=== PATIENT | female | born 1985 | race Caucasian/White ===

== ENCOUNTER 2017-02-11 23:20 | Emergency (ER) | payer OTHER ==
[2017-02-12 00:32] VITALS: BP 141/88
[2017-02-12] MEDS ORDERED: HYDROcodone/ACETAMIN 5-325 MG* 1 TAB PO ONE (00:44)
[2017-02-12] MEDS ORDERED: Cyclobenzaprine TAB* 10 MG PO ONE (00:45)
--- NOTE | 2017-02-13 16:27 | ED ---
Back Pain - HPI Summary HPI Summary: Patient presents with back pain. Hx of ruptured L5 disc 08/2016. Treated with PT only at the time with moderate improvement. Increased pain after gardening 2 weeks ago. Today, she notes to 9/10 pain in the lower back where previous injury occurred. She notes to back spasms. Ibuprofen without improvement of symptoms. Denies numbness, tingling, temperature or color changes to the area. Taken muscle relaxers and pain medication with improvement. Denies trauma to the area. Denies bladder or bowel dysfunction. - History of Current Complaint Chief Complaint: EDBackInjuryPain Stated Complaint: BACK PAIN Time Seen by Provider: 02/12/17 00:21 Hx Obtained From: Patient Hx Last Menstrual Period: 3 WEEKS AGO (HAVING BREAKTHROUGH BLEEDING NOW) Onset/Duration: Gradual Onset Onset/Duration: Started Weeks Ago, Atraumatic Timing: Constant Back Pain Location: Is Discrete @ - low back Severity Initially: Moderate Severity Currently: Moderate Pain Intensity: 8 Pain Scale Used: 0-10 Numeric Character: Aching, Spasmodic Aggravating Symptom(s): Movement, Lifting, Bending Alleviating Symptom(s): Rest, Position Associated Signs And Symptoms: Positive: Negative - Risk Factors AAA Risk Factors: Negative TAD Risk Factors: Negative Cauda Equina Risk Factors: Negative Epidural Abscess Risk Factors: Negative - Allergies/Home Medications Allergies/Adverse Reactions: Allergies Allergy/AdvReac Type Severity Reaction Status Date / Time No Known Allergies Allergy Verified 02/12/17 00:26 PMH/Surg Hx/FS Hx/Imm Hx Previously Healthy: Yes Endocrine/Hematology History: Denies: Hx Diabetes, Hx Thyroid Disease Cardiovascular History: Denies: Hx Hypertension, Hx Pacemaker/ICD Respiratory History: Denies: Hx Asthma, Hx Chronic Obstructive Pulmonary Disease (COPD) GI History: Denies: Hx Ulcer Sensory History: Denies: Hx Hearing Aid Psychiatric History: Denies: Hx Panic Disorder - Immunization History Hx Pertussis Vaccination: No Immunizations Up to Date: Unable to Obtain/Confirm Infectious Disease History: No Infectious Disease History: Denies: Hx Hepatitis, Hx Human Immunodeficiency Virus (HIV), Traveled Outside the [place] in Last 30 Days - Family History Known Family History: Positive: None - Social History Occupation: Employed Full-time Lives: With Family Alcohol Use: Rare Hx Substance Use: No Substance Use Type: Reports: None Hx Tobacco Use: No Smoking Status (MU): Never Smoked Tobacco Review of Systems Constitutional: Negative Eyes: Negative Cardiovascular: Negative Respiratory: Negative Genitourinary: Negative Positive: no symptoms reported, see HPI Positive: Arthralgia, Myalgia Skin: Negative Neurological: Negative Psychological: Normal All Other Systems Reviewed And Are Negative: Yes Physical Exam Triage Information Reviewed: Yes Vital Signs On Initial Exam: Initial Vitals Temp Pulse Resp BP Pulse Ox 98.1 F 95 20 141/88 100 02/11/17 23:25 02/11/17 23:25 02/11/17 23:25 02/11/17 23:25 02/11/17 23:25 Vital Signs Reviewed: Yes Appearance: Positive: Well-Appearing, Well-Nourished Skin: Positive: Warm, Skin Color Reflects Adequate Perfusion Head/Face: Positive: Normal Head/Face Inspection Eyes: Positive: Normal, EOMI, VLADIMIR, Conjunctiva Clear Neck: Positive: Supple, Nontender, No Lymphadenopathy Respiratory/Lung Sounds: Positive: Clear to Auscultation, Breath Sounds Present Cardiovascular: Positive: Normal, RRR, Pulses are Symmetrical in both Upper and Lower Extremities Musculoskeletal: Positive: Pain @, Other - Thorough physical exam was performed , focusing on thoracic and lumbar special tests and ROM. Due to patient pain around injury, physical exam was limited. Limited ROM. Flip Test negative. Straight leg raise positive. Kernig test positive. Negative Babinksi. Hip flexion and extension, knee extension, dorsiflexion, great toe extension and plantar flexion intact. Rotating at hips limited d/t pain. Nerve roots L4-S2 reflexes intact. L1-S2 nerve root sensory intact. No saddle anesthesia. Gait normal. Neurological: Positive: Normal, Sensory/Motor Intact, Alert, Oriented to Person Place, Time - [place] Coma Scale Best Eye Response: 4 - Spontaneous Best Motor Response: 6 - Obeys Commands Best Verbal Response: 5 - Oriented Diagnostics - Vital Signs Vital Signs Temp Pulse Resp BP Pulse Ox 02/12/17 00:20 98.1 F 95 20 141/88 100 02/11/17 23:25 98.1 F 95 20 141/88 100 - Laboratory Lab Statement: Any lab studies that have been ordered have been reviewed, and results considered in the medical decision making process. Back Pain Course/Dx - Course Course Of Treatment: Patient with chronic back pain with re-injury and pain not well controlled on OTC. Patient given orthopedic follow up in 5-7 days. Encouraged Ibuprofen 600mg three times daily with meals for pain. Return precautions given. Educated patient regarding back injuries and healing time and the need for further imaging if discomfort is present for > 6 weeks. Given pain management and muscle relaxers for relief of pain. - Diagnoses Differential Diagnosis/HQI/PQRI: Positive: Herniated Disc, Strain, Sprain Provider Diagnoses: Lumbar back pain Images - Images Full Body (No Head): 1 - pain on palpation Discharge - Discharge Plan Condition: Stable Disposition: HOME Prescriptions: Cyclobenzaprine TAB* [Flexeril TAB*] 10 mg PO BID PRN #20 tab MDD 2 PRN Reason: Pain Lidocaine PATCH 5%* [Lidoderm 5% Patch*] 1 patch TRANSDERM DAILY #5 patch oxyCODONE/Acetamin 10/325(NF) [Percocet 10/325 (NF)] 1 tab PO Q6H #28 tab MDD 4 Patient Education Materials: Lumbar Disc Herniation (ED) Referrals: Jenni Posadas MD [Primary Care Provider] - Additional Instructions: Take Percoset as needed for pain Do not drive with this medication. Lidocaine patch as needed. Flexeril: This medication is a muscle relaxant and can help relieve muscle spasms, muscle strain, or pain sensations. Flexeril can cause side effects that may impair your thinking or reactions. Be careful if you drive or do anything that requires you to be awake and alert. Avoid drinking alcohol, which can increase some of the side effects of Flexeril. Ibuprofen 600mg three times daily with meals for discomfort. Return to ED if symptoms worsen or fail to improve, notice worsening swelling, warmth or redness around the joint, develop fever, or pain is uncontrolled with OTC medications. Moist heat to the area for comfort. Warm showers or baths may improve symptoms. It is important to remain mobile as tolerated to prevent stiffening of the joints and delay healing. Follow up with your PCP. If symptoms remain for > 6 weeks, please seek special medical attention from an orthopedic physician.
== END 2017-02-12 01:01 | disposition home or self-care (01) ==
LOC: ED 23:20
DX: M54.5 Low back pain (principal)
CPT/HCPCS: 99282; A9270-GY

== ENCOUNTER 2017-02-24 06:27 | Observation (INO) | payer OTHER ==
[~2017-02-24 06:27] MED LIST: Buffered Lidocaine 0.9% SYRIN* 5 ML/SYR SYRINGE INTRADERM ONE; Dexamethasone IV* 4 MG/ML 1 ML (4 MG) IV SLOW PU ONE; Famotidine IV* 10 MG/ML 2 ML (20 mg) IV ONE
[2017-02-24] MEDS ORDERED: Dexamethasone IV* 4 MG/ML 1 ML (4 MG) ONE (06:41)
[2017-02-24] MEDS ORDERED: Famotidine IV* 10 MG/ML 2 ML (20 mg) ONE (06:41)
[2017-02-24] MEDS ORDERED: ceFAZolin 2 GM PREMIX(*) 2 GM/50 ML BAG IVPB ONE (06:42)
[2017-02-24] MEDS ORDERED: Buffered Lidocaine 0.9% SYRIN* 5 ML/SYR SYRINGE ONE (06:56)
[2017-02-24] MEDS ORDERED: Thrombin 5,000 UNITS* 1 APPLIC KIT - topical use - TOPICAL ONE (07:29)
[2017-02-24] MEDS ORDERED: Lidocaine 1.5% EPI 1:200,000* 30 ML SDV ONE (07:29)
[2017-02-24] MEDS ORDERED: Bacitracin IV* 50,000 UNITS INJ ONE (07:30)
[2017-02-24] MEDS ORDERED: Atracurium* 10 MG/ML 10 ML VIAL ONE (07:31)
[2017-02-24] MEDS ORDERED: Midazolam* 1 MG/ML 5 ML VIAL (5 MG) ONE (07:31)
[2017-02-24] MEDS ORDERED: fentaNYL* 50 MCG/ML 5 ML VIAL (250 MCG VIAL) ONE (07:31)
[2017-02-24] MEDS ORDERED: Ondansetron INJ* 2 MG/ML VIAL ONE (07:32)
[2017-02-24] MEDS ORDERED: Propofol* 10 MG/ML 20 ML BTL IV PUSH ONE (07:32)
[2017-02-24] MEDS ORDERED: Lidocaine 2% PF * 5 ML VIAL ONE (07:32)
[2017-02-24] MEDS ORDERED: Desflurane* 240 ML INH ONE (07:58)
[2017-02-24] MEDS ORDERED: fentaNYL* 50 MCG/ML 2 ML VIAL (100 MCG VIAL) ONE ×2 (08:01→09:41)
[2017-02-24] MEDS ORDERED: Scopolamine 1.5 mg* PATCH TRANSDERM PRN (08:10)
[2017-02-24] MEDS ORDERED: HYDROmorphone* 1 MG/ML 1 ML SYR IV PRN (08:10)
[2017-02-24] MEDS ORDERED: DiMENhydriNATE IV* 50 MG/ML VIAL IV PUSH PRN (08:10)
[2017-02-24] MEDS ORDERED: Ondansetron INJ* 2 MG/ML VIAL IV PRN ×2 (08:10→09:34)
[2017-02-24] MEDS ORDERED: Acetaminophen TAB* 325 MG PO PRN (09:34)
[2017-02-24] MEDS ORDERED: HYDROcodone/ACETAMIN 5-325 MG* 1 TAB PO PRN (09:34)
[2017-02-24] MEDS ORDERED: oxyCODONE/Acetamin 5/325 MG* TAB ONE (09:41)
[2017-02-24] MEDS: oxyCODONE/Acetamin 5/325 MG* TAB PO PRN ×2 (09:42→09:43)
[2017-02-24] MEDS: fentaNYL* 50 MCG/ML 2 ML VIAL (100 MCG VIAL) IV PRN ×2 (09:44→10:28)
--- NOTE | 2017-02-24 10:58 | RAD ---
INDICATION: Operative control films. Discectomy L4-L5 left. COMPARISON: MRI September 09, 2016 TECHNIQUE: 2 crosstable lateral views are submitted. FINDINGS: There are retractors and there is a curved hemostat at the L4-L5 level.
[2017-02-24 13:13] VITALS: BP 130/72
--- NOTE | 2017-02-24 13:57 | PN ---
Progress Note - Progress Note Date of Service: 02/24/17 SOAP: Subjective: [S/p lumbar discectomy L4-5 left. POD #0. LLE pain resolved. Ambulating the nursing unit independently. Pain well controlled with PO pain medication. Eating, drinking and voiding without difficulty. ] Objective: [ Vital Signs: Temp Pulse Resp BP Pulse Ox 98.3 F 80 18 130/72 98 02/24/17 12:41 02/24/17 12:41 02/24/17 13:48 02/24/17 12:41 02/24/17 12:41 General: Alert and oriented. No distress. Neuro: Motor and sensory intact. Extremities: Full ROM throughout. Incision: Intact with tabby. Dressing clean and intact.] Assessment: [Satisfactory post op course.] Plan: [1. Discharge home today. 2. Discharge instructions including wound care and activity level discussed with the patient. ]
[2017-02-24] MEDS ORDERED: Magnesium Hydroxide LIQ* 30 ML UDC PO SCH (21:00)
[2017-02-24] MEDS ORDERED: Senna TAB PO SCH (21:00)
[2017-02-25] MEDS ORDERED: buPROPion SR TAB.SR* 150 MG PO SCH (09:00)
[2017-02-27] MEDS ORDERED: Scopolomine PATCH Remove* 1 NOTE MISC PATCH OFF ONE (08:11)
--- NOTE | 2017-03-01 00:44 | OP ---
DATE OF OPERATION: 02/24/17 - ROOM #349 DATE OF : 83 PRIMARY SURGEON: Alexi Fu MD SENIOR OPERATIONS ANALYST: TASIA Boyd ANESTHESIOLOGIST: Gaurang Fuentes MD ANESTHESIA: General. PRE-OP DIAGNOSIS: Herniated nucleus pulposus, L4-5 on the left. POST-OP DIAGNOSIS: Herniated nucleus pulposus, L4-5 on the left. OPERATIVE PROCEDURE: Lumbar diskectomy L4-5 on the left with microdissection. DESCRIPTION OF PROCEDURE: After satisfactory general anesthesia was obtained, the patient was placed on the operating table in the prone position with the chest supported on the Mukul frame and the back slightly flexed. The lumbar region was then clipped, prepped and draped in a sterile manner for a lumbar laminectomy and a skin incision outlined from L4 to L5. This incision was infiltrated with 1% Xylocaine with epinephrine after which it was turned down sharply to the level of the lumbar fascia. The fascia was divided along the spinous processes from L4 to L5 and the paraspinal musculature stripped away from these posterior elements using the periosteal elevator and monopolar cautery. An intraoperative x-ray was obtained verifying proper interspace localization after which a partial hemilaminectomy was carried out by removing the inferior aspect of the L4 lamina and medial aspect of the facet complex with a combination of Midas Hira drill and Kerrison rongeurs. Bone was removed until the attachment of the ligamentum flavum was taken down. Ligamentum flavum was then removed as well. At this point of the procedure, the operating microscope was brought into the field and the remainder of the procedure was done under microscopic visualization. Utilizing microdissection, epidural venous structures were coagulated and divided. Projecting beneath the L5 nerve root was a subscapular herniation of disk material. Multiple fragments from the disk were removed and the disk space itself was cleared of any loose disk material using pituitary forceps and curette. At the conclusion of the decompression, the L5 nerve root was noted to be free in its course. After assuring adequate hemostasis, the wound was sterilely irrigated after which a piece of Gelfoam was placed over the laminectomy defect. The fascia was then reapproximated with 0 Vicryl suture. The subcutaneous tissue was closed with 2- 0 and 3-0 Vicryl suture and the skin closed with skin clips. The estimated blood loss was less than 50 cc and the final sponge, padding, and needle counts were correct. The patient was taken to the recovery room, extubated and in stable condition. [id number]/[facility] #: [id number] [facility]
== END 2017-02-24 14:26 | disposition home or self-care (01) ==
LOC: OR 06:27 → SSU 10:50
PROVIDERS: ADMIT Neurological Surgery; ATTEND Neurological Surgery
PROC: 01NB0ZZ Release Lumbar Nerve, Open Approach (ICD-10-PCS; 2017-02-24)
PROC: 0SB20ZZ Excision of Lumbar Vertebral Disc, Open Approach (ICD-10-PCS; principal; 2017-02-24 07:45)
DX: M51.16 Intervertebral disc disorders with radiculopathy, lumbar region (principal); M51.26 Other intervertebral disc displacement, lumbar region
CPT/HCPCS: 72100; 88304; A9270-GY; G0378; J0690; J1100; J2250; J2405; J2704; J3010

== ENCOUNTER 2017-07-25 23:12 | Emergency (ER) | payer OTHER ==
[2017-07-25] MEDS ORDERED: Ondansetron INJ* 2 MG/ML VIAL IV ONE (23:38)
[2017-07-25] MEDS ORDERED: NS 0.9% 1000 ML* 1,000 ML IV ONE (23:38)
[2017-07-26 00:04] LABS: Urine Appearance Clear; Urine Blood Negative (Negative); Urine Color Yellow; Urine Ketones Trace (Negative); Urine Protein Negative (Negative); Urine Specific Gravity 1.021 (1.010-1.030); Urine Urobilinogen Negative (Negative)
[2017-07-26] MEDS ORDERED: Morphine INJ* 4 MG/ML 1 ML CARPUJECT IV ONE (00:20)
[2017-07-26 00:47] LABS: ABS Basophils 0.1 10^3/ul (0-0.2); ABS Eosinophils 0.1 10^3/ul (0-0.6); ABS Lymphocytes 1.4 10^3/ul (1.0-4.8); ABS Monocytes 0.5 10^3/ul (0-0.8); ABS Neutrophils 8.6 10^3/ul (1.5-7.7); ABS Nucleated RBC 0.01 10^3/ul; Eosinophil % 0.6 % (0-6); Hematocrit 33 % (35-47); Hemoglobin 11.1 g/dl (12.0-16.0); Mean Corpuscular HGB Conc 33 g/dl (31-36); Mean Corpuscular Hemoglobin 29 pg (27-31); Mean Corpuscular Volume 85 fL (80-97); Mean Platelet Volume 8 um3 (7.4-10.4); Nucleated Red Blood Cells % 0; Platelet Count 218 10^3/ul (150-450); Red Cell Distribution Width 14 % (10.5-15); White Blood Count 10.6 10^3/ul (3.5-10.8)
[2017-07-26 01:03] LABS: EGFR Non-African American 93.9 (>60)
[2017-07-26 01:19] LABS: INR 0.92 (0.77-1.02)
[2017-07-26] MEDS ORDERED: Acetaminophen TAB* 325 MG PO ONE (01:59)
--- NOTE | 2017-07-26 02:12 | ED ---
GI/ HPI - HPI Summary HPI Summary: 31F presents with intense lower abdominal pain today. She states right after she had sex this pain started. She denies any vaginal discharge or history of STDs. she feels nauseous. she states feels similar to uti pain. She denies any dysuria, hematuria, urgency or frequency. She admits to lower back pain on right side that radiates from front. She states pain is greatest in pelvic and right lower quadrant. pain is 10/10. She took ibuprofen without relief. She denies any previous abdominal surgeries. - History of Current Complaint Chief Complaint: EDAbdPain Time Seen by Provider: 07/25/17 23:31 Stated Complaint: LOWER ABD PAIN, RIGHT SIDED FLANK PAIN Hx Last Menstrual Period: 3 WEEKS AGO (HAVING BREAKTHROUGH BLEEDING NOW) Pain Intensity: 5 - Allergy/Home Medications Allergies/Adverse Reactions: Allergies Allergy/AdvReac Type Severity Reaction Status Date / Time No Known Allergies Allergy Verified 07/25/17 23:22 PMH/Surg Hx/FS Hx/Imm Hx Endocrine/Hematology History: Denies: Hx Diabetes, Hx Thyroid Disease Cardiovascular History: Denies: Hx Hypertension, Hx Pacemaker/ICD Respiratory History: Denies: Hx Asthma, Hx Chronic Obstructive Pulmonary Disease (COPD) GI History: Denies: Hx Ulcer Sensory History: Denies: Hx Contacts or Glasses, Hx Hearing Aid Opthamlomology History: Denies: Hx Contacts or Glasses Psychiatric History: Reports: Hx Anxiety - on med Denies: Hx Panic Disorder - Surgical History Surgery Procedure, Year, and Place: pt never had surgery Hx Anesthesia Reactions: No - never had surgery Infectious Disease History: No Infectious Disease History: Denies: Hx Hepatitis, Hx Human Immunodeficiency Virus (HIV), Traveled Outside the [place] in Last 30 Days - Family History Known Family History: Positive: None - Social History Alcohol Use: Rare Hx Substance Use: No Substance Use Type: Reports: None Hx Tobacco Use: No Smoking Status (MU): Never Smoked Tobacco Review of Systems Negative: Fever Negative: Chest Pain Negative: Shortness Of Breath Positive: Abdominal Pain, Nausea. Negative: Vomiting, Diarrhea All Other Systems Reviewed And Are Negative: Yes Physical Exam Triage Information Reviewed: Yes Vital Signs On Initial Exam: Initial Vitals Temp Pulse Resp BP Pulse Ox 97.5 F 104 16 138/80 97 07/25/17 23:15 07/25/17 23:15 07/25/17 23:15 12/18/17 23:15 07/25/17 23:15 Vital Signs Reviewed: Yes Appearance: Positive: Well-Appearing Skin: Positive: Warm, Dry Head/Face: Positive: Normal Head/Face Inspection Eyes: Positive: Normal, Conjunctiva Clear Respiratory/Lung Sounds: Positive: Clear to Auscultation, Breath Sounds Present Cardiovascular: Positive: Normal, RRR Abdomen Description: Positive: Soft, Other: - tenderness right lower quadrant and pelvic tenderness Bowel Sounds: Positive: Present Pelvic Exam: Positive: external exam normal, speculum exam normal, no cerv. motion tender, discharge, tender adnexa - right Neurological: Positive: Normal Psychiatric: Positive: Normal - Eli Coma Scale Coma Scale Total: 15 Diagnostics - Vital Signs Vital Signs Temp Pulse Resp BP Pulse Ox 07/26/17 01:30 17 120/68 07/26/17 01:00 19 114/92 07/26/17 00:58 20 07/26/17 00:30 22 134/69 07/26/17 00:00 18 07/25/17 23:48 83 18 99 07/25/17 23:47 124/79 07/25/17 23:15 97.5 F 104 16 138/80 97 - Laboratory Lab Results: Lab Results 07/25/17 07/26/17 07/26/17 Range/Units 23:47 00:32 00:32 WBC 10.6 (3.5-10.8) 10^3/ul RBC 3.90 L (4.0-5.4) 10^6/ul Hgb 11.1 L (12.0-16.0) g/dl Hct 33 L (35-47) % MCV 85 (80-97) fL MCH 29 (27-31) pg MCHC 33 (31-36) g/dl RDW 14 (10.5-15) % Plt Count 218 (150-450) 10^3/ul MPV 8 (7.4-10.4) um3 Neut % (Auto) 80.6 (38-83) % Lymph % (Auto) 13.0 L (25-47) % [place] % (Auto) 5.1 (1-9) % Eos % (Auto) 0.6 (0-6) % Baso % (Auto) 0.7 (0-2) % Absolute Neuts (auto) 8.6 H (1.5-7.7) 10^3/ul Absolute Lymphs (auto) 1.4 (1.0-4.8) 10^3/ul Absolute Monos (auto) 0.5 (0-0.8) 10^3/ul Absolute Eos (auto) 0.1 (0-0.6) 10^3/ul Absolute Basos (auto) 0.1 (0-0.2) 10^3/ul Absolute Nucleated RBC 0.01 10^3/ul Nucleated RBC % 0 INR (Anticoag Therapy) (0.77-1.02) APTT (26.0-36.3) seconds Sodium 130 L (133-145) mmol/L Potassium 3.5 (3.5-5.0) mmol/L Chloride 101 (101-111) mmol/L Carbon Dioxide 24 (22-32) mmol/L Anion Gap 5 (2-11) mmol/L BUN 13 (6-24) mg/dL Creatinine 0.72 (0.51-0.95) mg/dL Est GFR ( Amer) 120.7 (>60) Est GFR (Non-Af Amer) 93.9 (>60) BUN/Creatinine Ratio 18.1 (8-20) Glucose 106 H (70-100) mg/dL Calcium 8.7 (8.6-10.3) mg/dL Total Bilirubin 0.40 (0.2-1.0) mg/dL AST 14 (13-39) U/L ALT 10 (7-52) U/L Alkaline Phosphatase 41 (34-104) U/L C-React Prot High Sens 1.02 mg/L Total Protein 6.4 (6.4-8.9) g/dL Albumin 3.9 (3.2-5.2) g/dL Globulin 2.5 (2-4) g/dL Albumin/Globulin Ratio 1.6 (1-3) Lipase 15 (11.0-82.0) U/L Beta HCG, Quant < 0.60 mIU/mL Urine Color Yellow Urine Appearance Clear Urine pH 5.0 (5-9) Ur Specific [place] 1.021 (1.010-1.030) Urine Protein Negative (Negative) Urine Ketones Trace H (Negative) Urine Blood Negative (Negative) Urine Nitrate Negative (Negative) Urine Bilirubin Negative (Negative) Urine Urobilinogen Negative (Negative) Ur Leukocyte Esterase Trace H (Negative) Urine WBC (Auto) 2+(11-20/hpf) H (Absent) Urine RBC (Auto) Trace(0-2/hpf) (Absent) Ur Squamous Epith Cells Present H (Absent) Urine Bacteria Absent (Absent) Urine Sperm Present H (Absent) Urine Glucose Negative (Negative) 07/26/17 Range/Units 00:32 WBC (3.5-10.8) 10^3/ul RBC (4.0-5.4) 10^6/ul Hgb (12.0-16.0) g/dl Hct (35-47) % MCV (80-97) fL MCH (27-31) pg MCHC (31-36) g/dl RDW (10.5-15) % Plt Count (150-450) 10^3/ul MPV (7.4-10.4) um3 Neut % (Auto) (38-83) % Lymph % (Auto) (25-47) % [place] % (Auto) (1-9) % Eos % (Auto) (0-6) % Baso % (Auto) (0-2) % Absolute Neuts (auto) (1.5-7.7) 10^3/ul Absolute Lymphs (auto) (1.0-4.8) 10^3/ul Absolute Monos (auto) (0-0.8) 10^3/ul Absolute Eos (auto) (0-0.6) 10^3/ul Absolute Basos (auto) (0-0.2) 10^3/ul Absolute Nucleated RBC 10^3/ul Nucleated RBC % INR (Anticoag Therapy) 0.92 (0.77-1.02) APTT 33.3 (26.0-36.3) seconds Sodium (133-145) mmol/L Potassium (3.5-5.0) mmol/L Chloride (101-111) mmol/L Carbon Dioxide (22-32) mmol/L Anion Gap (2-11) mmol/L BUN (6-24) mg/dL Creatinine (0.51-0.95) mg/dL Est GFR ( Amer) (>60) Est GFR (Non-Af Amer) (>60) BUN/Creatinine Ratio (8-20) Glucose (70-100) mg/dL Calcium (8.6-10.3) mg/dL Total Bilirubin (0.2-1.0) mg/dL AST (13-39) U/L ALT (7-52) U/L Alkaline Phosphatase (34-104) U/L C-React Prot High Sens mg/L Total Protein (6.4-8.9) g/dL Albumin (3.2-5.2) g/dL Globulin (2-4) g/dL Albumin/Globulin Ratio (1-3) Lipase (11.0-82.0) U/L Beta HCG, Quant mIU/mL Urine Color Urine Appearance Urine pH (5-9) Ur Specific [place] (1.010-1.030) Urine Protein (Negative) Urine Ketones (Negative) Urine Blood (Negative) Urine Nitrate (Negative) Urine Bilirubin (Negative) Urine Urobilinogen (Negative) Ur Leukocyte Esterase (Negative) Urine WBC (Auto) (Absent) Urine RBC (Auto) (Absent) Ur Squamous Epith Cells (Absent) Urine Bacteria (Absent) Urine Sperm (Absent) Urine Glucose (Negative) Result Diagrams: 07/26/17 00:32 07/26/17 00:32 Lab Statement: Any lab studies that have been ordered have been reviewed, and results considered in the medical decision making process. - Ultrasound No standard instances Ultrasound Interpretation: Positive (See Comments) - enlarged rigth ovary with complex cystic mass with surrouding fluid but no torison. Ultrasound Interpretation Completed By: Radiologist JAVY Course/Dx - Course Course Of Treatment: 31F presents with intense lower abdominal pain today. She states right after she had sex this pain started. She denies any vaginal discharge or history of STDs. she feels nauseous. she states feels similar to uti pain. She denies any dysuria, hematuria, urgency or frequency. She admits to lower back pain on right side that radiates from front. She states pain is greatest in pelvic and right lower quadrant. pain is 10/10. She took ibuprofen without relief. She denies any previous abdominal surgeries. on exam tenderness RLQ and pelvic region. pelvic tenderness right adenxal. no CMT tenderness. normal labs and crp. u/s shows enlarged rigth ovary with complex cystic mass with surrouding fluid but no torison. discussed results with patient and will send home with pain medication. will not treat as uti as likely contaminent as has sperm in sample. patient understand and agrees with plan. - Diagnoses Differential Diagnoses - Female: Ovarian Cyst, Ovarian Torsion, Urinary Tract Infection Provider Diagnoses: Right ovarian cyst Discharge - Discharge Plan Condition: Good Disposition: HOME Prescriptions: oxyCODONE/Acetamin 5/325 MG* [Percocet 5/325 TAB*] 1 tab PO Q6H PRN #20 tab MDD 4 PRN Reason: Pain Phenazopyridine 200 mg (NF) [Pyridium 200 MG tab *] 200 mg PO TID #5 tab Patient Education Materials: Ovarian Cyst (ED) Referrals: Jenni Posadas MD [Primary Care Provider] - Additional Instructions: Take Tylenol or ibuprofen every 6 hours for pain, take narcotic for break through pain Follow up with obgyn Return to ED if develop any new or worsening symptoms
[2017-07-26] MEDS ORDERED: oxyCODONE/Acetamin 5/325 MG* TAB PO ONE (02:30)
[2017-07-26] MEDS ORDERED: Phenazopyridine TAB* 100 MG PO ONE (02:35)
[2017-07-26 03:09] VITALS: BP 116/60
--- NOTE | 2017-07-26 07:41 | RAD ---
INDICATION: Right lower quadrant and pelvic pain COMPARISON: None. TECHNIQUE: Real-time transabdominal and transvaginal ultrasound examination of the female pelvis including grayscale and Doppler color flow imaging. FINDINGS: Uterus: The uterus measures 8.2 x 6.4 x 5.7 cm. At the right mid level myometrium there is a well-circumscribed mass measuring 2.3 x 1.7 x 2.1 cm most consistent with a uterine fibroid. The endometrial stripe is smooth and uniform measuring 1 cm in thickness. Ovaries: The right and left ovary measure 8.0 x 3.9 x 6.7 cm and 4.7 x 3.1 x 2.4 cm, respectively. Normal arterial and venous waveforms are identified. Extending from the right ovary there is a mixed echogenicity, partially vascular structure contributing to the right ovary is overall very large size. The right ovary measures a volume of approximately 109 mL. There is small amount of free fluid in the cul-de-sac. IMPRESSION: 1. Mixed echogenicity mass extending from the right ovary measuring just under 4 cm in greatest dimension may represent an involuting follicle or possibly an endometrioma. Please correlate to beta hCG as ectopic is also considered in the differential. At least follow-up ultrasound in 4-6 weeks is advised to determine resolution or stability. 2. 2.3 cm myometrial fibroid is noted.
== END 2017-07-26 02:40 | disposition home or self-care (01) ==
LOC: ED 23:12
DX: N83.201 Unspecified ovarian cyst, right side (principal); R10.30 Lower abdominal pain, unspecified; R10.84 Generalized abdominal pain; R11.0 Nausea
CPT/HCPCS: 36415; 76830; 80053; 81003; 81015; 83690; 84702; 85025; 85610; 85730; 86141; 87086; 96374; 96375; 99285; A9270-GY; J2270; J2405

== ENCOUNTER 2017-12-30 19:41 | Emergency (ER) | payer OTHER ==
--- OUTSIDE RECORDS SUMMARY | 2017-12-30 19:49 | XMS REPORT ---
:1985 Author Organization [facility] Address [address] [place] [address] Care Team Providers Name Role Phone Maranda Barbosa Unavailable Unavailable PROBLEMS Type Condition ICD9-CM [id number] Onset Condition SNOMED Code Code Code Dates Status Problem Intramural D25.1 Active 98111042 leiomyoma of uterus Problem Pelvic and R10.2 Active 107025271 perineal pain Problem Irregular N92.6 Active 28960657 menstruation, unspecified Problem Acute vaginitis N76.0 Active 27755579 Problem Unspecified N83.201 Active 31172280526813603 ovarian cyst, right side Problem Cervical low risk R87.820 Active 871233040 human papillomavirus (HPV) DNA test positive ALLERGIES No Information ENCOUNTERS Encounter Location Date Diagnosis [facility] Jan, [place] [id number] [facility] Jan, OBGYN [place], [place] [id number] [facility] December, OBGYN [place] [id number] [facility] December, [place]BG[place] [id number] [facility] Oct, OBGYN [place], [place] [id number] [facility] Oct, Unspecified ovarian cyst, OBGYN [facility], right side N83.201 ; [place] [id number] Intramural leiomyoma of uterus D25.1 and Irregular menstruation, unspecified N92.6 [place] [facility] Oct, Unspecified ovarian cyst, OBGYN [facility], right side N83.201 and [place] [id number] Intramural leiomyoma of uterus D25.1 [place] [facility] 103 Aug, Unspecified ovarian cyst, OBGYN [facility], right side N83.201 and [place] [id number] Intramural leiomyoma of uterus D25.1 [place] [facility] 103 Aug, Unspecified ovarian cyst, OBGYN [facility], right side N83.201 ; [place] [id number] Pelvic and perineal pain R10.2 and Leiomyoma of uterus, unspecified D25.9 [place] [facility] Jul, OBGYN [facility], [place] [id number] [place] [facility] Jul, Pelvic and perineal pain OBGYN [facility], R10.2 ; Encounter for [place] [id number] screening for infections with a predominantly sexual mode of transmission Z11.3 ; Other specified noninflammatory disorders of vagina N89.8 and Unspecified ovarian cyst, right side N83.201 [place] [facility] Apr, [facility] [place] [id number] [place] [facility] 103 Apr, [place] [id number] [place] [facility] Apr, [facility] [place] [id number] [facility] Jan, Leiomyoma of uterus, OBGYN [facility], unspecified D25.9 ; [place] [id number] PAIN 625.9 and Irregular menstruation, unspecified N92.6 [place] [facility] Jan, Irregular menstruation, [facility], unspecified N92.6 and [place] [id number] Leiomyoma of uterus, unspecified D25.9 [place] [facility] 103 December, Irregular menstruation, [facility], unspecified N92.6 and [place] [id number] Cervical low risk human papillomavirus (HPV) DNA test positive R87.820 [facility] December, Irregular menstruation, OBGYN [facility], unspecified N92.6 [place] [id number] [facility] December, [place] [id number] [facility] December, [place]BG[place] [id number] [facility] December, [facility] [place]ological examination [place] [id number] (general) (routine) with abnormal findings Z01.411 ; Encounter for screening for malignant neoplasm of cervix Z12.4 ; Encounter for screening for infections with a predominantly sexual mode of transmission Z11.3 ; Pelvic and perineal pain R10.2 and Irregular menstruation, unspecified N92.6 [facility] Nov, [place] [id number] [facility] Jun, [place]BG[place] [id number] [facility] Feb, O[place] [id number] [facility] Feb, Acute vaginitis N76.0 [place] [id number] [facility] Feb, [place]BG[place] [id number] [place] [facility] [address] [place] [address] Feb, Encounter for screening [facility] [address] [place], for infections with a [place] [id number] predominantly sexual mode of transmission Z11.3 ; Encounter for other general counseling and advice on contraception Z30.09 and Abnormal uterine and vaginal bleeding, unspecified N93.9 [place] [facility] Jan, OBGYN [place], [place] [id number] [facility] Jan, [place]BG[place], [place] [id number] [facility] Nov, [place]BG[place], [place] [id number] [facility] [address] [place] [address] Nov, Acute vaginitis N76.0 ; [facility] [address] [place] [address], Urinary tract infection, [place] [id number] site not specified N39.0 and Encounter for surveillance of contraceptive pills Z30.41 [facility] Jul, [place] [id number] [facility] Jun, [place] [id number] [facility] May, Encounter for fertility OBN [facility], testing Z31.41 [place] [id number] [facility] Apr, [place] [id number] [facility] Apr, [place] [id number] [facility] Aug, [place] [id number] [facility] [address] [place] [address] Aug, PERSN W FEARED COMPLAINT [facility] [address] [place] [address], V65.5 and [place] 782.62 [place] [id number] [facility] Jul, ROUTINE AEROSPACE PROJECT ENGINEER EXAMINATION [facility] [address] [place] [address], V72.31 ; STD Screen V74.5 [place] [id number] and FAMILY PLANNING V25.09 [facility] 103 Jan, [facility]AGINAL DISCHARGE 623.5 [facility], and Vaginitis 616.10 [place] [id number] [facility] Feb, [place]BG[place] [id number] [facility] 103 Jan, [place]BG[place] [id number] [facility] 103 Jan, [place] [id number] [facility] 103 Jan, VAGINAL DISCHARGE 623.5 OBGYN [facility], and Vaginitis 616.10 [place] [id number] [facility] 103 Apr, Candidal vulvovaginitis OBGYN [facility], 112.1 [place] [id number] [facility] 103 December, ROUTINE AEROSPACE PROJECT ENGINEER EXAMINATION OBN [facility], V72.31 ; PAP SMEAR W/O AEROSPACE PROJECT ENGINEER [place] [id number] EXAM V76.2 and Candidal vulvovaginitis 112.1 IMMUNIZATIONS No Known Immunizations SOCIAL HISTORY Never Assessed REASON FOR REFERRAL FUNCTIONAL STATUS PLAN OF CARE VITAL SIGNS MEDICATIONS Unknown Medications PROCEDURES No Known procedures RESULTS No Results REASON FOR VISIT [facility] 12/13 MEDICAL (GENERAL) HISTORY Type Description Date Medical History high cholesterol Medical History Anxiety/Depression Medical History ruptured disc in back in Jul 2016- L-5 Surgical History wisdom teeth
--- OUTSIDE RECORDS SUMMARY | 2017-12-30 19:49 | XMS REPORT ---
:1985 Author Organization [facility] Address [address] [place] [address] Care Team Providers Name Role Phone Maranda Barbosa Unavailable Unavailable PROBLEMS Type Condition ICD9-CM [id number] Onset Condition SNOMED Code Code Code Dates Status Problem Intramural D25.1 Active 21297360 leiomyoma of uterus Problem Pelvic and R10.2 Active 100457942 perineal pain Problem Irregular N92.6 Active 34941227 menstruation, unspecified Problem Acute vaginitis N76.0 Active 01382215 Problem Unspecified N83.201 Active 61446997986863795 ovarian cyst, right side Problem Cervical low risk R87.820 Active 854959382 human papillomavirus (HPV) DNA test positive ALLERGIES No Known Allergies ENCOUNTERS Encounter Location Date [facility] December, [place] [id number] [facility] December, [place], [place] [id number] [facility] Oct, [place], [place] [id number] [facility] Oct, Unspecified ovarian cyst, OBGYN [facility], right side N83.201 ; [place] [id number] Intramural leiomyoma of uterus D25.1 and Irregular menstruation, unspecified N92.6 [facility] Oct, Unspecified ovarian cyst, OBGYN [facility], right side N83.201 and [place] [id number] Intramural leiomyoma of uterus D25.1 [facility] Aug, Unspecified ovarian cyst, OBGYN [facility], right side N83.201 and [place] [id number] Intramural leiomyoma of uterus D25.1 [facility] Aug, Unspecified ovarian cyst, OBGYN [facility], right side N83.201 ; [place] [id number] Pelvic and perineal pain R10.2 and Leiomyoma of uterus, unspecified D25.9 [facility] Jul, [facility] [place] [id number] [facility] Jul, Pelvic and perineal pain OBGYN [facility], R10.2 ; Encounter for [place] [id number] screening for infections with a predominantly sexual mode of transmission Z11.3 ; Other specified noninflammatory disorders of vagina N89.8 and Unspecified ovarian cyst, right side N83.201 [facility] 103 Apr, [facility] [place] [id number] [facility] Apr, [place] [id number] [facility] Apr, [place] [id number] [facility] Jan, Leiomyoma of uterus, OBN [facility], unspecified D25.9 ; [place] [id number] PAIN 625.9 and Irregular menstruation, unspecified N92.6 [facility] Jan, Irregular menstruation, [facility], unspecified N92.6 and [place] [id number] Leiomyoma of uterus, unspecified D25.9 [facility] December, Irregular menstruation, [facility], unspecified N92.6 and [place] [id number] Cervical low risk human papillomavirus (HPV) DNA test positive R87.820 [facility] 103 December, Irregular menstruation, [facility], unspecified N92.6 [place] [id number] [place] [facility] 103 December, [place], [place] [id number] [place] [facility] 103 December, [place], [place] [id number] [place] [facility] 103 December, Encounter for OBGYN [facility], gynecological examination [place] [id number] (general) (routine) with abnormal findings Z01.411 ; Encounter for screening for malignant neoplasm of cervix Z12.4 ; Encounter for screening for infections with a predominantly sexual mode of transmission Z11.3 ; Pelvic and perineal pain R10.2 and Irregular menstruation, unspecified N92.6 [place] [facility] 103 Nov, OBG[place], [place] [id number] [place] [facility] 103 Jun, [place] [id number] [place] [facility] 103 Feb, [place], [place] [id number] [place] [facility] 103 Feb, Acute vaginitis N76.0 [place] [id number] [place] [facility] Feb, [place] [id number] [facility] Feb, [facility] [address] [place] [address], for infections with a [place] [id number] predominantly sexual mode of transmission Z11.3 ; Encounter for other general counseling and advice on contraception Z30.09 and Abnormal uterine and vaginal bleeding, unspecified N93.9 [place] [facility] Jan, OBG[place], [place] [id number] [place] [facility] Jan, OBG[place], [place] [id number] [place] [facility] 103 Nov, OBG[place] [id number] [address] Nov, Acute vaginitis N76.0 ; [facility] [address] [place] [address], Urinary tract infection, [place] [id number] site not specified N39.0 and Encounter for surveillance of contraceptive pills Z30.41 [facility] Jul, OBG[place] [id number] [facility] Jun, OBG[place], [place] [id number] [facility] 103 May, Encounter for fertility OBN [facility], testing Z31.41 [place] [id number] [facility] Apr, [place] [id number] [facility] Apr, OBG[place] [id number] [facility] 103 Aug, [place] [id number] [address] Aug, PERSN W FEARED COMPLAINT [facility] [address] [place] [address], V65.5 and [place] 782.[address] [place] [id number] [address] Jul, ROUTINE DIGITAL ANALYST EXAMINATION [address], V72.31 ; STD Screen V74.5 [place] [id number] and FAMILY PLANNING V25.09 [facility] 103 Jan, VAGINAL DISCHARGE 623.5 [facility], and Vaginitis 616.10 [place] [id number] [facility] Feb, [place] [id number] [facility] Jan, [place] [id number] [facility] Jan, [place] [id number] [facility] 103 18 Jan, 2013 VAGINAL DISCHARGE 623.5 OBGYN [facility], and Vaginitis 616.10 [place] [id number] [facility] 103 17 Apr, 2012 Candidal vulvovaginitis OBGYN [facility], 112.1 [place] [id number] [facility] 103 December, ROUTINE DIGITAL ANALYST EXAMINATION OBGYN [facility], V72.31 ; PAP SMEAR W/O DIGITAL ANALYST [place] [id number] EXAM V76.2 and Candidal vulvovaginitis 112.1 IMMUNIZATIONS No Known Immunizations SOCIAL HISTORY Never Assessed REASON FOR REFERRAL FUNCTIONAL STATUS PLAN OF CARE VITAL SIGNS MEDICATIONS Medication Instructions Dosage Frequency Start End Date Duration Status Date ibuprofen 800 mg orally q8 hrs 1 tab(s) Active PRN multivitamin orally once a 1 cap(s) 24h Active Multiple Vitamins day folic acid 0.8 mg orally once a 1 tab(s) 24h Active day PROCEDURES Procedure Date Ordered Result Body Site Broken appointment without 24 hr notice December 13, 2017 RESULTS No Results REASON FOR VISIT annual, needs US and f/u, Canceled<24 hrs notice MEDICAL (GENERAL) HISTORY Type Description Date Medical History high cholesterol Medical History Anxiety/Depression Medical History ruptured disc in back in Jul 2016- L-5 Surgical History wisdom teeth
[2017-12-30 19:53] VITALS: BP 138/80
--- NOTE | 2017-12-30 20:20 | UC ---
Complaint Female HPI - HPI Summary HPI Summary: Patient is a 32-year-old female presenting to the with chief complaint of urinary burning, frequency, urgency. Denies any suprapubic tenderness or back pain. Denies any fevers or sweats but endorses chills. She has had UTIs frequently in the past and states this feels similar. She's never been seen by a urologist. She has taken Pyridium just [place]STER. - History Of Current Complaint Chief Complaint: UCGU Stated Complaint: POSS UTI Time Seen by Provider: 12/30/17 19:42 Hx Obtained From: Patient Hx Last Menstrual Period: 12/25/17 ?: No Onset/Duration: Sudden Onset Timing: Constant Severity Initially: Moderate Severity Currently: Moderate Pain Intensity: 5 Pain Scale Used: 0-10 Numeric Character: Burning Associated Signs And Symptoms: Negative: Fever, Back Pain, Vaginal Bleeding/ Discharge, Vaginal Discharge, Nausea, Vomiting(# Of Episodes =), Retained Foregin Body (Specify) - Risk Factors Ectopic Risk Factor: Negative Ovarian Torsion Risk Factor: Negative - Allergies/Home Medications Allergies/Adverse Reactions: Allergies Allergy/AdvReac Type Severity Reaction Status Date / Time No Known Allergies Allergy Verified 12/30/17 19:53 Home Medications: Home Medications Phenazopyridine 200 mg (NF) [Pyridium 200 MG tab *] 200 mg PO ONCE PRN 12/30/17 [History Confirmed 12/30/17] PMH/Surg Hx/FS Hx/Imm Hx Previously Healthy: Yes - Surgical History Surgical History: Yes Surgery Procedure, Year, and Place: DISCECTOMY 02/2017 - Family History Known Family History: Positive: None - Social History Occupation: Employed Full-time Alcohol Use: Rare Substance Use Type: None Smoking Status (MU): Never Smoked Tobacco Review of Systems Constitutional: Negative Skin: Negative Respiratory: Negative Cardiovascular: Negative Genitourinary: Frequency, Urgency Motor: Negative Neurovascular: Negative Neurological: Negative Is Patient Immunocompromised?: No All Other Systems Reviewed And Are Negative: Yes Physical Exam Triage Information Reviewed: Yes Appearance: Well-Appearing, No Pain Distress, Well-Nourished Vital Signs: Initial Vital Signs Temp 97.6 F 12/30/17 19:50 Pulse 77 12/30/17 19:50 Resp 18 12/30/17 19:50 BP 138/80 12/30/17 19:50 Pulse Ox 99 12/30/17 19:50 Vital Signs Reviewed: Yes Eye Exam: Normal Eyes: Positive: Conjunctiva Clear Neck exam: Normal Neck: Positive: Supple, No Lymphadenopathy Respiratory Exam: Normal Respiratory: Positive: Chest non-tender, Lungs clear Musculoskeletal Exam: Normal Musculoskeletal: Positive: Strength Intact Neurological: Positive: Alert Psychological: Positive: Normal Response To Family Skin Exam: Normal Complaint Female Dx - Course Course Of Treatment: Patient's evaluated for UTI symptoms. She took Pyridium prior to arrival. Endorses frequency, urgency, burning with urination. Patient is given Macrobid twice daily 5 days. UA obtained and sent for culture. She is also given Pyridium. She will return for any worsening or changing symptoms and we will call with any change of medication. - Differential Dx/Diagnosis Provider Diagnoses: UTI Discharge - Sign-Out/Discharge Documenting (check all that apply): Discharge/Admit/Transfer - Discharge Plan Condition: Stable Disposition: HOME Prescriptions: Nitrofurantoin Monohyd/M-Cryst [Macrobid 100 mg Capsule] 100 mg PO BID #10 cap Phenazopyridine TAB* [Pyridium 100 mg TAB*] 100 mg PO TID #20 tab Patient Education Materials: Dysuria (ED) Referrals: Jenni Posadas MD [Primary Care Provider] - Additional Instructions: 100mg caps - take 1 up to three times daily For worsening symptoms you make take 2 (200mg) - up to three times daily Macrobid twice daily For fevers, sweats, chills or back pain - you need to go to the ED - Billing Disposition and Condition Condition: STABLE Disposition: HOME
== END 2017-12-30 20:14 | disposition home or self-care (01) ==
LOC: UCEAST 19:41
DX: N39.0 Urinary tract infection, site not specified (principal)
CPT/HCPCS: 87077; 87086; 87186; 99212; G0463

== ENCOUNTER 2018-11-16 16:34 | Emergency (ER) | payer OTHER ==
[2018-11-16 16:41] VITALS: BP 131/69
--- NOTE | 2018-11-16 17:53 | UC ---
Complaint Female HPI - HPI Summary HPI Summary: 33 y/o female presents to the urgent care c/o C/O UTI SYMPTOMS AND VAGINAL DISCHARGE STARTING THIS AM. - History Of Current Complaint Chief Complaint: UCGU Stated Complaint: BURNING URINATION Time Seen by Provider: 11/16/18 17:12 Hx Obtained From: Patient Hx Last Menstrual Period: 1 WEEK AGO Pain Intensity: 3 - Allergies/Home Medications Allergies/Adverse Reactions: Allergies Allergy/AdvReac Type Severity Reaction Status Date / Time No Known Allergies Allergy Verified 11/16/18 16:41 Home Medications: Home Medications Ibuprofen TAB* [Advil TAB*] 800 mg PO ONCE PRN 11/16/18 [History Confirmed 11/16] PMH/Surg Hx/FS Hx/Imm Hx - Surgical History Surgical History: Yes Surgery Procedure, Year, and Place: DISCECTOMY 02/2017, BILAT FALLOPIAN TUBES REMOVED AUGUST 2018 - Family History Known Family History: Positive: None - Social History Alcohol Use: Rare Substance Use Type: None Smoking Status (MU): Never Smoked Tobacco Physical Exam Vital Signs: Initial Vital Signs Temp 97 F 11/16/18 16:38 Pulse 52 11/16/18 16:38 Resp 16 11/16/18 16:38 BP 131/69 11/16/18 16:38 Pulse Ox 100 11/16/18 16:38 Complaint Female Dx - Differential Dx/Diagnosis Differential Diagnosis/HQI/PQRI: Cervicitis, Pelvic Inflammatory Disease, , Renal Colic, Sexually Transmitted Disease, Ureteral Stone, Urinary Tract Infection Provider Diagnosis: UTI (urinary tract infection), Dysuria, Vulvovaginal candidiasis Discharge - Discharge Plan Condition: Stable Disposition: HOME Prescriptions: Cephalexin CAP* [Keflex CAP*] 500 mg PO BID #14 cap Fluconazole 150 MG TAB* [Diflucan 150 MG TAB*] 150 mg PO ONCE #1 tablet Phenazopyridine TAB* [Pyridium 100 mg TAB*] 100 mg PO TID #6 tab Patient Education Materials: Urinary Tract Infection in Women (ED), Yeast Infection (ED) Referrals: Jenni Posadas MD [Primary Care Provider] - 3 Days Additional Instructions: 1- Please take Keflex PO x 7 days. Pyridium 100 mg PO TID x 2 days to alleviate urinary symptoms. Increase increase fluid intake. drink cranberry juice. 2-Urine sent for culture if any abnormality, you will be notified for further treatment. 3- Take fluconazole PO as directed to alleviate vaginal discharge 4-If symptoms do not improve please return to the urgent care or f/u with your PCP for further management - Billing Disposition and Condition Condition: STABLE Disposition: Home
== END 2018-11-16 18:10 | disposition home or self-care (01) ==
LOC: UCEAST 16:34
DX: N39.0 Urinary tract infection, site not specified (principal); B37.3 Candidiasis of vulva and vagina
CPT/HCPCS: 81003; 84702; 87077; 87086; 87186; 99212; G0463

== ENCOUNTER 2019-03-13 20:13 | Emergency (ER) | payer OTHER ==
[2019-03-13 20:19] VITALS: BP 148/86
--- NOTE | 2019-03-13 20:27 | UC ---
Skin Complaint HPI - HPI Summary HPI Summary: 33 yo female presents with sunburn. 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 On 03/11 she was planning to be outside a lot, thus applied a significant amount of sun screen. Since that time she has developed significant redness and itching to her chest, shoulders, and upper back. She has been taking benadryl, claritin, and applying hydrocortisone cream with little relief. Denies facial swelling, throat swelling, SOB, difficulty breathing, fevers, blisters, or open wounds. - History of Current Complaint Chief Complaint: UCSkin Time Seen by Provider: 03/13/19 20:26 Stated Complaint: SUNBURN REACTION Hx Obtained From: Patient Hx Last Menstrual Period: 03/05/19 Onset/Duration: Gradual Onset Onset Severity: Mild Current Severity: Moderate Pain Intensity: 7 Pain Scale Used: 0-10 Numeric - Allergy/Home Medications Allergies/Adverse Reactions: Allergies Allergy/AdvReac Type Severity Reaction Status Date / Time SUNBURN Allergy Severe SWELLING, Uncoded 03/13/19 20:19 ITCHING Home Medications: Home Medications Loratadine [Claritin] 10 mg PO ONCE PRN 03/13/19 [History Confirmed 03/13/19] buPROPion TAB* [Wellbutrin TAB*] 150 mg PO DAILY 03/13/19 [History Confirmed 01/24] diPHENhydraMINE PO* [Benadryl PO 25 MG TAB*] 100 mg PO ONCE PRN 03/13/19 [ History Confirmed 03/13/19] PMH/Surg Hx/FS Hx/Imm Hx - Additional Past Medical History Additional PMH: Polymorphous light eruption Psychological History: Anxiety, Depression - Surgical History Surgical History: Yes Surgery Procedure, Year, and Place: DISCECTOMY 02/2017, BILAT FALLOPIAN TUBES REMOVED AUGUST 2018 - Family History Known Family History: Positive: None - denies FMHX - Social History Occupation: Employed Full-time Lives: With Family Alcohol Use: Rare Substance Use Type: None Smoking Status (MU): Never Smoked Tobacco Review of Systems All Other Systems Reviewed And Are Negative: Yes Constitutional: Positive: Negative Skin: Positive: Rash Respiratory: Positive: Negative Cardiovascular: Positive: Negative Neurological: Positive: Negative Psychological: Positive: Negative Physical Exam - Summary Physical Exam Summary: GENERAL: NAD. WDWN. No pain distress. SKIN: Chest, shoulders, and upper back with moderate erythema. No blistering, open sores, edema, or hives. ENT: Airway patent and without edema. No facial edema. NECK: Supple. Nontender. No lymphadenopathy. CHEST: CTAB. No accessory muscle use. Breathing comfortably and in no distress. CV: Pulses intact. Cap refill <2seconds NEURO: Alert. PSYCH: Age appropriate behavior. Triage Information Reviewed: Yes Vital Signs: Initial Vital Signs Temp 98.3 F 03/13/19 20:15 Pulse 82 03/13/19 20:15 Resp 20 03/13/19 20:15 BP 148/86 03/13/19 20:15 Pulse Ox 99 03/13/19 20:15 Vital Signs Reviewed: Yes Course/Dx - Course Course Of Treatment: Suspect light eruption. In the clinic she was given kenalog 40mg IM. Rx for prednisone. Advised to continue benadryl and claritin. F/u if symptoms do not resolve. If she develops worsening symptoms, SOB, swelling, or difficulty breathing to call 911 or go to the ER - Diagnoses Provider Diagnosis: Polymorphous light eruption Discharge - Sign-Out/Discharge Documenting (check all that apply): Patient Departure All imaging exams completed and their final reports reviewed: No Studies - Discharge Plan Condition: Stable Disposition: HOME Prescriptions: predniSONE TAB* [Deltasone 20 MG TAB*] 60 mg PO DAILY #12 tab Referrals: Jenin Posadas MD [Primary Care Provider] - Additional Instructions: If you develop a fever, shortness of breath, chest pain, new or worsening symptoms - please call your PCP or go to the ED immediately. Your blood pressure was high at todays visit. Please see your primary provider within 4 weeks for recheck and re-evaluation. Continue to take benadryl and claritin for your symptoms. May also apply a benadryl cream to the area - Billing Disposition and Condition Condition: STABLE Disposition: Home - Attestation Statements Provider Attestation: Per institutional requirements, I have reviewed the chart, however, I was not consulted specifically or made aware of this patient by the midlevel provider. I did not personally evaluate, interact with , or disposition this patient.
[2019-03-13] MEDS ORDERED: Triamcinolone Acetonide* 40 MG/ML 1 ML VIAL IM ONE (20:33)
== END 2019-03-13 20:50 | disposition home or self-care (01) ==
LOC: UCEAST 20:13
DX: L56.4 Polymorphous light eruption (principal); X32.XXXA Exposure to sunlight, initial encounter; Y92.9 Unspecified place or not applicable; F41.9 Anxiety disorder, unspecified; F32.9 Major depressive disorder, single episode, unspecified
CPT/HCPCS: 96372; 99212; G0463; J3301

== ENCOUNTER 2019-06-13 22:20 | Emergency (ER) | payer OTHER ==
[2019-06-13 22:26] VITALS: BP 144/87
[2019-06-13 23:03] LABS: ABS Basophils 0.1 10^3/ul (0-0.2); ABS Eosinophils 0.2 10^3/ul (0-0.6); ABS Lymphocytes 2.7 10^3/ul (1.0-4.8); ABS Monocytes 0.6 10^3/ul (0-0.8); ABS Neutrophils 3.6 10^3/ul (1.5-7.7); Eosinophil % 2.3 %; Hematocrit 42 % (35-47); Hemoglobin 14.5 g/dL (12.0-16.0); Lymphocyte % 38.3 %; Mean Corpuscular HGB Conc 35 g/dL (31-36); Mean Corpuscular Hemoglobin 32 pg (27-31); Mean Corpuscular Volume 93 fL (80-97); Mean Platelet Volume 8.3 fL (7.4-10.4); Platelet Count 235 10^3/uL (150-450); Red Blood Count 4.51 10^6 /uL (3.70-4.87); Red Cell Distribution Width 13 % (10-15); White Blood Count 7.2 10^3/uL (3.5-10.8)
[2019-06-13 23:23] LABS: ALT 14 U/L (7-52); AST 16 U/L (13-39); Albumin 4.2 g/dL (3.2-5.2); Albumin/Globulin Ratio 1.5 (1-3); Alkaline Phosphatase 61 U/L (34-104); Anion Gap 5 mmol/L (2-11); BUN/Creatinine Ratio 17.6 (8-20); Blood Urea Nitrogen 16 mg/dL (6-24); CO2 Carbon Dioxide 30 mmol/L (22-32); Calcium 9.4 mg/dL (8.6-10.3); Chloride 101 mmol/L (101-111); EGFR African American 85.6 (>60); EGFR Non-African American 70.8 (>60); Globulin 2.8 g/dL (2-4); Glucose 110 mg/dL (70-100); Potassium 3.7 mmol/L (3.5-5.0); Sodium 136 mmol/L (135-145)
[2019-06-13 23:30] LABS: HCG Pregnancy < 0.60 mIU/mL
== END 2019-06-13 23:32 | disposition left against medical advice (07) ==
LOC: ED 22:20
DX: Z53.21 Procedure and treatment not carried out due to patient leaving prior to being seen by health care provider (principal); R10.9 Unspecified abdominal pain
CPT/HCPCS: 36415; 80053; 84702; 85025; 99282